=== PATIENT | female | born 1930 | race Caucasian/White ===

== ENCOUNTER → 2017-09-29 | Outpatient (CLI) | payer OTHER ==
[~2017-09-29] VITALS: Ht 152.4 cm; Wt 64.9 kg
[~2017-09-29] MED LIST: ACIPHEX; ACIPHEX 20 MG T20 MG PO; APAP500 PO; CELEBREX 200 M200 M1 PO; CELEBREX 200 M200 MG PO; CHONDROITIN PO; CHONDROITIN SU1 EACH; CIPROFLOXACIN500 M1 PO; DIOVAN160 MG PO; DIOVAN40 MG PO; EVISTA; FLOMAX PO; FLOMAX0.4 MG PO; GAVISCON TABLE1 EACH PO; GLUCOSAMINE SU500 MG PO; HYDROCODON-ACE1 EAC7 PO; LOPERAMIDE 2 MG2 M1 PO; MACROBID 100 M100 M1 PO; MULTIVITAMINS; NORCO 5-325 TA1 EACH PO; PANTOPRAZOLE SO40 M1 PO; PERCOCET 5-3251 EACH PO; TAMSULOSIN HCL0.4 M1 PO; TAMSULOSIN HCL0.4 MG PO; VITAMIN B-12500 MCG PO; VITAMIN D2 PO; VITAMIN D250000 UNIT PO; VITRON C PO; XANAX 0.25 MG0.25 MG PO; ZETIA10 MG PO; ZOCOR 20 MG TAB20 M1; ZOFRAN ODT4 MG PO
--- NOTE | ~2017-09-29 | HPC ---
[facility] [address] [place] [address] PAIN MANAGEMENT CONSULTATION Name: AMIE ROSENTHAL [facility]: [facility] [id number] Admission: 09/29/17 Attend Phys: Jeniffer Tong MD Discharge: Date of : 32 Report #: [id number] THIS REPORT FOR: //name// CC: Lamberto Tong DATE OF SERVICE: 09/29/2017 PRIMARY CARE PHYSICIAN: Lamberto Osman MD CHIEF COMPLAINT: Pain in the right shoulder and back. HISTORY OF PRESENT ILLNESS: The patient is a pleasant 87-year-old female who has been referred to the pain clinic for evaluation of right shoulder pain and discomfort. She has noted that the pain has been problematic over the last week. She describes it as aching. It is exacerbated with activities of daily living. She notes that use of Aspercreme is somewhat helpful. She denies any new trauma to the area. She notes that movement in the shoulder causes pain and discomfort. Notes that if her arm is "hanging down" it feels better. Pain is worse if she is raising it up or turning it backwards. She describes it as a 3/10. It involves the right shoulder. ALLERGIES: TRAMADOL. MEDICATIONS: Chondroitin 1200 mg, ____ 1500 mg, valsartan 80 mg, Vitron-C, iron, alprazolam 0.25 mg, vitamin D weekly, Celebrex 200 mg daily, Zetia 10 mg, rabeprazole 20 mg. PAST MEDICAL HISTORY: 1. Hiatal hernia, acid reflux. 2. Carpal tunnel history. 3. Hypertension. 4. Generalized arthritis. 5. Kidney stones. 6. Hypercholesterolemia. PAST SURGICAL HISTORY: Bladder lift, colon reduction, knee surgery, cataracts, kidney stone removal x 2, tonsillectomy, bilateral knee arthroscopy, carpal tunnel release, right wrist. SOCIAL HISTORY: She is retired. Denies use of tobacco, about 2 alcoholic beverages per week. LABORATORY DATA: No laboratory values are available at the time of our interview. [address] [address] PAIN MANAGEMENT CONSULTATION Name: GALOAMIEHOSEA ORDOÑEZ Room #: REG [facility] Ziggy#: [id number] Admission: 09/29/17 Attend Phys: Jeniffer Tong MD Discharge: Date of : 32 Report #: [id number] REVIEW OF SYSTEMS: Questionnaire, generally good health. A 14-point review, wears glasses, cataracts, constipation, insomnia. PHYSICAL EXAMINATION: VITAL SIGNS: Blood pressure 114/70, pulse 83, respiratory rate 20, saturation 95%. Height 5 feet 0 inches, weight 143 pounds, BMI is 27.9. The patient has not fallen since we saw her or has not fallen in the last 3 months. She complains of pain and discomfort involving her right shoulder. Range of motion with abduction and adduction are somewhat limited because of pain and discomfort involving the shoulder. Palpation around the deltoid area somewhat tender. Palpation in the area of the biceps tendon on the humerus reproduces a significant component of her pain. IMPRESSION: 1. Myofascial pain involving the right shoulder. 2. Hypertension. 3. Hypercholesterolemia. 4. Hiatal hernia history with acid reflux. RECOMMENDATIONS: We discussed treatment options with the patient. Risks and benefits of an injection in the shoulder were discussed. Possible complications, which could include increased pain, bleeding, increased muscle soreness or shoulder damage to the cartilage were discussed. The patient elects to proceed. PROCEDURE NOTE: The patient was placed in the sitting position at a 35 degree angle on the bed. The shoulder area was sterilely prepped with a chlorhexidine solution. After appropriate amount of time to dry, a 25-gauge needle was then advanced into the right shoulder joint area. The patient states this reproduce a component of her pain. A total of 40 mg triamcinolone and 4 mL of 0.5% bupivacaine was injected. The patient tolerated the procedure well. Her pain decreased from 3 to 0 at the time of discharge. She will follow up in the future as needed. We would like to thank you for letting us participate in her care. We hope she continues to improve. By: [id number] [id number] Jeniffer Tong MD /[facility]
[2017-09-29 13:22] VITALS: BP 114/70
== END ==
LOC: PAIN 07:03
DX: M25.511 Pain in right shoulder (principal); M79.1 Myalgia; I10 Essential (primary) hypertension; E78.00 Pure hypercholesterolemia, unspecified; K21.9 Gastro-esophageal reflux disease without esophagitis; Z98.890 Other specified postprocedural states; Z87.442 Personal history of urinary calculi; Z88.6 Allergy status to analgesic agent; Z87.891 Personal history of nicotine dependence

== ENCOUNTER 2018-06-09 14:20 | Inpatient (IN) | payer OTHER ==
[~2018-06-09] VITALS: Ht 154.9 cm; Wt 68.8 kg
--- NOTE | ~2018-06-09 | EKG ---
[address] [address] ELECTROCARDIOGRAM REPORT Name: AMIE ROSENTHAL Room #: 211-P ADM IN M.R.#: [id number] Admission: 06/09/18 Attend Phys: Manan Rod MD Discharge: Date of : 32 Report #: [id number] THIS REPORT FOR: //name// [facility] ED Test Date: 2018-06-09 Test Time: 14:44:15 Pat Name: AMIE ROSENTHAL Department: Room: 211 Gender: F Senior [employer] Developer: as : 1930 Requested By: Thuy Bentley Order Number: [id number] MD: Tushar Enriquez Measurements Intervals [place] Rate: 101 P: 49 [place]: 137 QRS: -3 QRSD: 89 T: 35 QT: 360 QTc: 467 Interpretive Statements Sinus tachycardia Borderline T wave abnormalities Compared to ECG 09/19/2013 14:06:59 T-wave abnormality now present Electronically Signed On 06-10-2018 12:59:29 CDT by Tushar Enriquez [email or web address] <ELECTRONICALLY SIGNED> By: Tushar Enriquez MD, [facility] 06/10/18 1259 [id number] 1444 Tushar Enriquez MD, [facility] /EPI
--- NOTE | ~2018-06-09 | HC ---
[facility] [place] [address] [address] CONSULTATION Name: AMIE ROSENTHAL Room #: 211-P ADM IN M.R.#: [id number] Admission: 06/09/18 Attend Phys: Manan Rod MD Discharge: Date of : 32 Report #: [id number] THIS REPORT FOR: //name// CC: Lamberto Adrian MD DATE OF SERVICE: 06/10/2018 HISTORY OF PRESENT ILLNESS: The patient is an 87-year-old female with history of hiatal hernia, who was admitted for increasing abdominal pain as well as chest pain and some shortness of breath. She also had episodes of nausea and vomiting. Her symptoms have become somewhat worse over the last few months and she has been having more nocturnal pain. She has been taken Gaviscon at night, which was helpful. She already takes Aciphex on a daily basis. She denies any significant dysphagia. She does report belching, helps to relieve her symptoms in general. Her weight has been stable. She was actually evaluated at [facility] approximately 8-10 years ago for a large hiatal hernia and discussed possible surgery at that time, but she decided not to proceed with that. Her symptoms tend to be worse with a larger meal, which happens to be at night in general. Her D-dimer was elevated in the Emergency Room and a CTA of the chest and thorax were performed. This showed huge fluid distended paraesophageal hiatal hernia consisting of mid and distal stomach that was rotated up through the hiatal hernia and into the thorax with the gastric fundus and proximal stomach still below the diaphragm but also markedly distended with fluid. 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 She also had a CT of the abdomen and pelvis showing similar findings. Today, she is denying any abdominal pain. No nausea or vomiting. She has been n.p.o. since last night. She states her last colonoscopy was approximately 3 years ago, reportedly negative. Her bowel movements in general have been fairly normal recently. She denies any fevers or chills. Currently, no chest pain or shortness of breath. PAST MEDICAL HISTORY: Previous history of hiatal hernia, gastroesophageal reflux disease, bilateral cataract surgery, previous colon resection for redundant colon, hypertension, hypercholesterolemia, history of renal stones being removed, osteoarthritis, bladder lift surgery and carpal tunnel release. ALLERGIES: TO OXYCODONE and TRAMADOL. REVIEW OF SYSTEMS: As per HPI. CURRENT MEDICATIONS: Diovan, glucosamine, Celebrex, Xanax, Aciphex, chondroitin, Zetia, vitamin D [place] [address] CONSULTATION Name: AMIE ROSENTHAL SMITA Room #: 211-P ADM IN M.R.#: [id number] Admission: 06/09/18 Attend Phys: Manan Rod MD Discharge: Date of : 32 Report #: [id number] SOCIAL HISTORY: She denies any tobacco use. She reports occasional alcohol use. FAMILY HISTORY: Negative for colon cancer. PHYSICAL EXAMINATION: VITAL SIGNS: Temperature is 98.1, pulse 108, blood pressure is 116/75 and respiratory rate is 17. GENERAL: She is alert and oriented x 3, in no acute distress. HEENT: Sclerae nonicteric. Oropharynx clear. NECK: Supple, without lymphadenopathy. CARDIOVASCULAR: Regular rate and rhythm. CHEST: Clear to auscultation bilaterally. ABDOMEN: Soft. She is nontender and nondistended. Normoactive bowel sounds. EXTREMITIES: No cyanosis, clubbing or edema. LABORATORY DATA: Sodium 143, potassium 3.7, chloride 110, bicarbonate 20, BUN 22, creatinine is 1.4 and glucose 181. AST is 22, total bilirubin 0.7, calcium 8.5, magnesium 2.0, alkaline phosphatase 88, ALT is 27, total protein 7.6 and albumin 4.0. Lactic acid level 1.5. Troponin less than 0.06. INR 1.0. WBC is 8.4, hemoglobin 12.8, MCV 88.6 and platelet count is 191. ASSESSMENT AND PLAN: Abdominal pain, recent abdominal fullness, bloating and episodes of nausea and vomiting. 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 Today, she is feeling much improved. We had a long discussion. I would recommend proceeding with an upper endoscopy for further evaluation. The patient will likely need surgical correction and we will make further recommendations after endoscopy. She understands and agrees with this plan. Thank you for allowing me to participate in her care. By: [id number] Wing Ardon MD /nt
--- NOTE | ~2018-06-09 | P ---
[facility] [place] [address] [address] [place] [address] PROCEDURE REPORT Name: AMIE ROSENTHAL Room #: 211-P ADM IN M.R.#: [id number] Admission: 06/09/18 Attend Phys: Manan Rod MD Discharge: Date of : 32 Report #: [id number] THIS REPORT FOR: //name// CC: Lamberto Adrian MD DATE OF SERVICE: 06/10/2018 PROCEDURE PERFORMED: Upper endoscopy. HISTORY OF PRESENT ILLNESS: The patient is an 87-year-old female with a known history of hiatal hernia with increasing upper abdominal pain, shortness of breath, nausea and vomiting. 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 The patient has a known history of large hiatal hernia. In fact, discussed possible surgery at [facility] 8-10 years ago but decided not to proceed at that time. She denies any dysphagia or odynophagia. She does take Aciphex on a daily basis. DESCRIPTION OF PROCEDURE: The risks and benefits of the procedure were explained to the patient and those risks including but not limited to bleeding, perforation and the risk of sedation. She understood these risks and gave informed consent. The patient was given a general anesthesia due to her hiatal hernia to protect her airway. Next, using a standard Olympus upper endoscope, the scope was placed in the patient's mouth and advanced under direct vision through the esophagus, stomach and into the second portion of the duodenum. The esophagus was normal throughout. The GE junction was normal. Upon entering the stomach, there was obvious large hiatal hernia was noted. There was a small amount of food and liquid within the gastric fundus. I was able aspirate most of the liquid away. The scope was then advanced through the hernia into the gastric antrum, which was normal. The pylorus was normal and patent. The duodenal bulb, first and second portion were all normal. The scope was then brought back up into the patient's stomach and on retroflexion, there was an obvious large hiatal hernia. There does appear to be a paraesophageal component. There were no evidence of ischemic changes. All the mucosa was pink and healthy in appearance. No ulcerations or erosions were noted. At this point, the scope was then withdrawn and the procedure terminated. The patient tolerated the procedure well. IMPRESSION: 1. Large hiatal hernia likely with paraesophageal component. No evidence of ischemia. 2. Small amount of food and liquid within the gastric fundus. 3. Otherwise, normal upper endoscopy. [address] [address] PROCEDURE REPORT Name: GAOLAMIE SMITA Room #: 211-P [facility] IN M.R.#: [id number] Admission: 06/09/18 Attend Phys: Manan Rod MD Discharge: Date of : 32 Report #: [id number] RECOMMENDATIONS: 1. We will start clear liquid diet as tolerated today. 2. Recommend surgical repair. Dr. Adrian is now following. Thank you for allowing me to participate in her care. By: 1228 0047 Wing Ardon MD /nt
[~2018-06-09 14:20] MED LIST changes: +DIOVAN 80 MG TA80 M1 PO
[2018-06-09 14:28] VITALS: BP 145/101
[2018-06-09 14:56] LABS: URINE BILIRUBIN NEGATIVE (Negative); URINE BLOOD NEGATIVE (Negative); URINE CLARITY CLEAR; URINE COLOR YELLOW; URINE GLUCOSE-RANDOM* NEGATIVE (Negative); URINE KETONES TRACE (Negative); URINE LEUKOCYTES 1+ (Negative); URINE NITRITE NEGATIVE (Negative); URINE PROTEIN (DIPSTICK) NEGATIVE (Negative); URINE SPECIFIC GRAVITY 1.015 (1.005-1.035)
[2018-06-09 14:57] LABS: ABSOLUTE NEUTROPHILS 3.1 thou/uL (1.4-8.2); BASOPHILS 1.1 % (0.0-2.0); EOSINOPHILS 3.5 % (0.0-3.0); HEMATOCRIT 42.8 % (37.0-47.0); HEMOGLOBIN 14.5 gm/dL (12.0-15.0); LYMPHOCYTES 27.4 % (24.0-44.0); MCH 29.8 pg (26.0-34.0); MCHC 33.9 g/dL (28.0-37.0); MCV 88.1 fL (80.0-100.0); MONOCYTES 11.7 % (1.0-8.0); PLATELET COUNT 228 thou/uL (150-400); POLYS 56.3 % (36.0-66.0); RBC 4.85 mil/uL (4.20-5.00); RDW 14.3 % (10.5-14.5); WBC 5.5 thou/uL (4.0-11.0)
[2018-06-09 15:08] LABS: ANION GAP 10 mmol/L (7-16); BUN 18 mg/dL (7-18); CALCIUM 9.1 mg/dL (8.5-10.1); CHLORIDE 106 mmol/L (98-107); CO2 25 mmol/L (21-32); CREATININE 1.2 mg/dL (0.6-1.0); GLUCOSE 107 mg/dL (74-106); POTASSIUM 3.8 mmol/L (3.5-5.1); SODIUM 141 mmol/L (136-145)
[2018-06-09 15:09] LABS: BACTERIA None Seen /HPF (None Seen); CASTS None Seen /LPF (None Seen); CRYSTALS None Seen /LPF (None Seen); MUCUS 0-3 Light strn/LPF (None Seen); SQUAMOUS 4-10 Moderate /LPF (0-3); URINE RBC None Seen /HPF (0-2); URINE WBC >25 Many /HPF (0-5)
[2018-06-09 15:14] LABS: ALBUMIN 3.9 g/dL (3.4-5.0); MAGNESIUM 2.1 mg/dL (1.8-2.4); SGOT 22 U/L (15-37); SGPT 27 U/L (30-65); TOTAL BILIRUBIN 0.7 mg/dL (<0.1-1.0); TOTAL PROTEIN 7.6 g/dL (6.4-8.2); TROPONIN-I <0.06 ng/mL (<0.06)
[2018-06-09 15:16] LABS: D-DIMER 0.81 ug/mLFEU (0.19-0.50); PROTIME 10.5 Seconds (9.3-11.4)
[2018-06-09 17:53] VITALS: BP 161/98
[2018-06-09 18:07] VITALS: BP 161/108
[2018-06-09 18:33] VITALS: BP 155/97
[2018-06-09 19:29] LABS: TOTAL PROTEIN 7.6 g/dL (6.4-8.2)
[2018-06-09 19:42] VITALS: BP 154/97
[2018-06-09 20:07] LABS: TSH 0.638 uIU/mL (0.358-3.740)
[2018-06-10 00:13] VITALS: BP 159/99
[2018-06-10 05:32] VITALS: BP 137/71
[2018-06-10 06:06] LABS: HEMATOCRIT 38.2 % (37.0-47.0); HEMOGLOBIN 12.8 gm/dL (12.0-15.0); MCH 29.8 pg (26.0-34.0); MCHC 33.6 g/dL (28.0-37.0); MCV 88.6 fL (80.0-100.0); RBC 4.31 mil/uL (4.20-5.00); RDW 14.2 % (10.5-14.5); WBC 8.4 thou/uL (4.0-11.0)
[2018-06-10 06:21] LABS: CALCIUM 8.5 mg/dL (8.5-10.1); CREATININE 1.4 mg/dL (0.6-1.0); POTASSIUM 3.7 mmol/L (3.5-5.1)
[2018-06-10 07:29] VITALS: BP 116/75
[2018-06-10 13:07] VITALS: BP 129/78
[2018-06-10 15:08] VITALS: BP 131/91
[2018-06-10 19:45] VITALS: BP 147/76
[2018-06-11 00:09] VITALS: BP 144/73
[2018-06-11 03:39] LABS: HEMATOCRIT 34.2 % (37.0-47.0); HEMOGLOBIN 11.5 gm/dL (12.0-15.0); MCHC 33.6 g/dL (28.0-37.0); MCV 89.3 fL (80.0-100.0); RBC 3.83 mil/uL (4.20-5.00); RDW 14.5 % (10.5-14.5); WBC 5.4 thou/uL (4.0-11.0)
[2018-06-11 03:52] LABS: CALCIUM 8.3 mg/dL (8.5-10.1); CREATININE 1.1 mg/dL (0.6-1.0); MAGNESIUM 1.9 mg/dL (1.8-2.4); POTASSIUM 3.5 mmol/L (3.5-5.1)
[2018-06-11 04:47] VITALS: BP 143/85
[2018-06-11 07:32] VITALS: BP 140/75
[2018-06-11 11:56] VITALS: BP 155/93
[2018-06-11 16:21] VITALS: BP 155/93
[2018-06-11 19:02] VITALS: BP 155/93
== END 2018-06-11 17:30 | DRG 380 ==
LOC: ER 14:20 → EROBS 16:58 → 2N 16:58
PROVIDERS: Internal Medicine; Nurse Practitioner Family
PROC: 0DJ08ZZ Inspection of Upper Intestinal Tract, Via Natural or Artificial Opening Endoscopic (ICD-10-PCS; principal; 2018-06-10)
DX: K31.1 Adult hypertrophic pyloric stenosis (principal); N17.0 Acute kidney failure with tubular necrosis; K44.0 Diaphragmatic hernia with obstruction, without gangrene; K21.9 Gastro-esophageal reflux disease without esophagitis; I10 Essential (primary) hypertension; M19.90 Unspecified osteoarthritis, unspecified site; K31.89 Other diseases of stomach and duodenum; K44.9 Diaphragmatic hernia without obstruction or gangrene; E78.00 Pure hypercholesterolemia, unspecified; Z87.891 Personal history of nicotine dependence; Z87.442 Personal history of urinary calculi; Z98.42 Cataract extraction status, left eye; Z98.41 Cataract extraction status, right eye; Z79.899 Other long term (current) drug therapy; Z88.8 Allergy status to other drugs, medicaments and biological substances
CPT/HCPCS: 10081; 62110; 62900

== ENCOUNTER 2019-12-10 01:06 | Emergency (ER) | payer OTHER ==
[~2019-12-10] VITALS: Ht 152.4 cm; Wt 59.0 kg
[2019-12-10 02:01] LABS: ABSOLUTE NEUTROPHILS 7.1 thou/uL (1.4-8.2); BASOPHILS 0.7 % (0.0-2.0); EOSINOPHILS 3.7 % (0.0-3.0); HEMATOCRIT 39.7 % (37.0-47.0); HEMOGLOBIN 12.6 gm/dL (12.0-15.0); LYMPHOCYTES 12.1 % (24.0-44.0); MCH 27.9 pg (26.0-34.0); MCHC 31.7 g/dL (28.0-37.0); MONOCYTES 8.5 % (1.0-8.0); PLATELET COUNT 206 thou/uL (150-400); RBC 4.51 mil/uL (4.20-5.00); RDW 14.5 % (10.5-14.5); WBC 9.4 thou/uL (4.0-11.0)
[2019-12-10 02:10] LABS: CALCIUM 8.8 mg/dL (8.5-10.1); CREATININE 1.6 mg/dL (0.6-1.0)
[2019-12-10 02:16] LABS: ALBUMIN 3.4 g/dL (3.4-5.0); TOTAL BILIRUBIN 0.6 mg/dL (<0.1-1.0); TOTAL PROTEIN 6.8 g/dL (6.4-8.2)
[2019-12-10 02:30] LABS: URINE BILIRUBIN NEGATIVE (Negative); URINE BLOOD 1+ (Negative); URINE CLARITY CLEAR; URINE COLOR YELLOW; URINE GLUCOSE-RANDOM* NEGATIVE (Negative); URINE KETONES NEGATIVE (Negative); URINE LEUKOCYTES-REFLEX TRACE (Negative); URINE NITRITE-REFLEX NEGATIVE (Negative); URINE PROTEIN (DIPSTICK) NEGATIVE (Negative); URINE UROBILINOGEN 0.2 E.U./dl (0.2-1.0)
[2019-12-10 02:44] LABS: BACTERIA-REFLEX 1-9 Few /HPF (None Seen); CASTS None Seen /LPF (None Seen); CRYSTALS None Seen /LPF (None Seen); SQUAMOUS 0-3 Few /LPF (0-3); URINE RBC 3-10 Few /HPF (0-2); URINE WBC-REFLEX 0-5 Rare /HPF (0-5)
[2019-12-10] MEDS ORDERED: SENNA-DOCUSATE1 EAC1 PO (03:16)
[2019-12-10] MEDS ORDERED: NORCO 5-325 TA1 EAC1 PO (03:16)
[2019-12-10 04:13] VITALS: BP 144/84
== END 2019-12-10 04:33 | disposition home or self-care (01) ==
LOC: ER 01:06
PROVIDERS: Emergency Medicine
DX: N20.1 Calculus of ureter (principal); R11.2 Nausea with vomiting, unspecified; I10 Essential (primary) hypertension; E78.00 Pure hypercholesterolemia, unspecified; K21.9 Gastro-esophageal reflux disease without esophagitis; M19.90 Unspecified osteoarthritis, unspecified site; Z90.49 Acquired absence of other specified parts of digestive tract; Z87.442 Personal history of urinary calculi; Z87.891 Personal history of nicotine dependence; Z88.6 Allergy status to analgesic agent